=== PATIENT | female | born 1980 | race Caucasian/White ===

== ENCOUNTER 2016-12-02 19:02 | Emergency (ER) | payer OTHER ==
[~2016-12-02 19:02] MED LIST: ATENOLOL25 MG PO; EFFEXOR XR150 MG PO; EFFEXOR25 MG PO; GABAPENTIN PO; HYDROCODONE PO; KLONOPIN1 MG PO; OXYCODONE HCL E10 MG PO; PRILOSEC20 MG PO; RANITIDINE HCL150 MG PO; ZOFRAN PO
--- NOTE | 2016-12-02 21:18 | DIAGNOSTIC IMAGING REPORT ---
PROCEDURE: US ABDOMEN ULTRASOUND-LIMITED INDICATION: RUQ PAIN TECHNIQUE: Stanford scale and color Doppler sonographic images of the abdomen were obtained. COMPARISON: CT chest/abdomen/pelvis 01/18/2016. FINDINGS: Cholecystectomy. Normal CBD measures 3.8 mm. Liver measures 19.6 cm with increased echogenicity. Normal pancreas. Aorta and IVC are patent. Normal hepatopetal flow. Normal right kidney measures 11.6 cm. IMPRESSION: 1. Cholecystectomy 2. Echogenic liver suggestive of hepatic steatosis versus intrinsic liver disease.
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
--- NOTE | 2016-12-02 21:29 | ED CLINICAL REPORT ---
Clinical Report - Physicians/Mid Levels [facility] [address] [place] [address] 12/02/2016 19:02 Patient: CHUCK TAIRQ Time Seen: 19:11. Arrived- By private vehicle. Historian- patient. HISTORY OF PRESENT ILLNESS Chief Complaint: ABDOMINAL PAIN. At its maximum, severity described as 8 / 10. When seen in the E.D., severity described as 7 / 10. It is described as dull and bloating and it is described as located in the right upper quadrant and radiating to the upper back ("between my shoulder blades"). This started today at about 5 PM and is still present. It was abrupt in onset and has been constant. The patient has had nausea and loss of appetite. No vomiting. She has had loose stools (chronically). It has been similar to previous symptoms. Similar symptoms previously: Several times. Diagnosis: gall stones. ( GAMING). REVIEW OF SYSTEMS Last normal menstrual period was 2 weeks ago. No chills, fever, calf pain, abdominal pain or diarrhea. No nausea, vomiting or urinary problems. She has experienced night sweats. (for the past 2 weeks). She has had a cough. She has had mild difficulty breathing ("rattle on the L side"). The patient has also had dyspnea on exertion. She has had palpitations (chronically). It has been similar to previous symptoms. All systems otherwise negative, except as recorded above. PAST HISTORY PCP - [facility] - Igor. SOCIAL HISTORY Current every day light tobacco smoker (cigarette)- less than 1/2 a pack per day. Occasional alcohol use. History of occasional drug use: marijuana. Residence: [place] she lives alone and with a family member. FAMILY HISTORY father with high cholesterol. ADDITIONAL NOTES The nursing notes have been reviewed. PHYSICAL EXAM Vital Signs: 12/02/2016 19:10 BP: 140/84. HR: 102. RR: 16. O2 saturation: 98%. Temp: 97.7 F. Pain level now: 8/10. Have been reviewed. Appearance: Alert. Eyes: Pupils equal, round and reactive to light. ENT: Pharynx normal. Neck: Normal inspection. Neck supple. CVS: Normal heart rate and rhythm. Heart sounds normal. Respiratory: No respiratory distress. Breath sounds normal. Abdomen: Soft. Mild tenderness in the right upper quadrant. Bowel sounds normal. Mild hepatomegaly. No mass. Back: Normal inspection. Skin: Skin warm and dry. Normal skin color. No rash. Normal skin turgor. Extremities: Extremities exhibit normal ROM. No lower extremity edema. LABS, X-RAYS, AND EKG Abdominal Sonogram: (IMPRESSION: 1. Cholecystectomy 2. Echogenic liver suggestive of hepatic steatosis versus intrinsic liver disease.). Laboratory Tests: Urine: (ANSHUL: 12/02/2016 20:20) ( [facility] 12/02/2016 21:24) Final results Test Result Flag Units (Reference) URINE NEGATIVE CBC w Diff: (ANSHUL: 12/02/2016 19:25) ( [facility] 12/02/2016 19:43) Final results Test Result Flag Units (Reference) WHITE BLOOD COUNT 8.9 K/uL (4.5-11.5) RED BLOOD COUNT 4.71 M/uL (4.00-5.20) HEMOGLOBIN 13.9 gm/dL (12.0-16.0) HEMATOCRIT 41.1 % (36.0-46.0) MEAN CELL VOLUME 87 fL (80-100) MEAN CORPUSCULAR HGB 30 pg (26-34) MEAN CORPUSCULAR HGB CONC 34 g/dL (31-37) RED CELL DISTRIBUTION WIDTH 14.9 H % (11.6-14.8) PLATELET COUNT 370 K/uL (150-400) NEUTROPHIL % 70.0 % (50-75) LYMPH % 22.8 L % (25-40) MONO % 6.0 % (3-14) EOSINOPHIL % 0.7 % (0-4) BASOPHIL % 0.5 % (0-2) CMP: (ANSHUL: 12/02/2016 19:25) ( [facility] 12/02/2016 19:56) Final results Test Result Flag Units (Reference) GLUCOSE 86 mg/dL (70-110) BUN 9 mg/dL (7-18) CREATININE 0.7 mg/dL (0.6-1.3) Estimated GFR >60 mL/min Estimated GFR- >60 mL/min Note: Persistent reduction over 3 months in eGFR<60 mL/min/1.73 m2 defines CKD. Patients with eGFR values>=60 mL/min/1.73 m2 may also have CKD if evidence ofpersistent proteinuria. Additional information may be foundat www.kidney.org. SODIUM 141 mmol/L (136-145) POTASSIUM 3.4 L mmol/L (3.5-5.1) CHLORIDE 104 mmol/L (98-107) CARBON DIOXIDE 25 mmol/L (21-32) CALCIUM 8.8 mg/dL (8.5-10.1) TOTAL PROTEIN 7.4 g/dL (6.4-8.2) ALBUMIN 3.8 g/dL (3.3-5.0) BILIRUBIN, TOTAL 0.3 mg/dL (0.0-1.0) ALKALINE PHOSPHATASE 83 U/L (46-116) AST (SGOT) 20 U/L (15-37) ALT (SGPT) 28 U/L (12-78) LIPASE 129 U/L (73-393) AMYLASE 44 U/L (25-115) . PROGRESS AND PROCEDURES Course of Care: Patient is stable. Patient/family counseled. Old medical records reviewed. Disposition: Discharged. Condition: stable. CLINICAL IMPRESSION Acute right upper quadrant abdominal pain of unknown cause. INSTRUCTIONS No driving or operating machinery while taking medication. Sedative medication was given during your visit. Drink plenty of fluids. Warnings: Further evaluation is necessary. GENERAL WARNINGS: Return or contact your physician immediately if your condition worsens or changes unexpectedly, if not improving as expected, or if other problems arise. Your Current Medications: CONTINUE TAKING THE FOLLOWING MEDICATIONS: Advil Oral. Effexor XR Oral : 150 mg daily. Lansoprazole Oral : 40mg daily. Prescription Medications: Ultram 50 mg: take 1-2 orally every 6 hours as needed for pain. Dispense fifteen (15). No refills. Substitution is permissible. Follow-up: Follow up with your doctor tomorrow. Call for an appointment. Follow up with a slitter and rewinder machine operator- as recommended by your primary care physician. Understanding of the discharge instructions verbalized by patient. (Electronically signed by Yonis Bailey MD 12/03/2016 23:55)
--- NOTE | 2016-12-02 21:30 | ED ORDER SUMMARY ---
..... Patient: CHUCK TARIQ OrderSheet [facility] VisitID: [id number] [place] [address] 36y, F Registration Date/Time: 12/02/2016 ORDER SHEET Weight: 96.1 kg (stated) Allergies: None GENERAL ORDERS: CBC w Diff Urgent (19:12/02/2016 David PENA) (Ack 19:22 AMcQuoid ER Tech1) (19:30 KKnebel R.N.) CMP Urgent (19:12/02/2016 David PENA) (Ack 19:22 AMcQuoid ER Tech1) (19:30 KKnebel R.N.) UA-Culture if indicated Urgent (19:12/02/2016 David PENA) (Ack 19:22 AMcQuoid ER Tech1) (20:25 KKnebel R.N.) Amylase Urgent (19:12/02/2016 David PENA) (Ack 19:22 AMcQuoid ER Tech1) (19:30 KKnebel R.N.) Lipase Urgent (19:12/02/2016 David PENA) (Ack 19:22 AMcQuoid ER Tech1) (19:30 KKnebel R.N.) Urine Urgent (19:12/02/2016 David PENA) (Ack 19:22 AMcQuoid ER Tech1) (20:25 KKnebel R.N.) US Abdomen Limited (No) Urgent (20:18 12/02/2016 David PENA) (Ack 20:22 AMcQuoid ER Tech1) (21:02 RFay) MEDICATION ORDERS: IV FLUIDS: IV Saline Lock (19:12/02/2016 David PENA) (19:29 KKnebel R.N.) IV NS : initial bolus 500 mL (1000 mL/hr), then 125 mL/hr for 4h (NOW); Urgent (20:12/02/2016 David PENA) (20:35 KKnebel R.N.) Dilaudid IV 1 mg (HIGH ALERT MEDICATION, NOW) (20:12/02/2016 David PENA) (20:35 KKnebel R.N.) Zofran IV 4 mg (NOW) (20:16 12/02/2016 David PENA) (20:35 Philippe Hughes) ORDER SHEET NOTES: [Electronically signed by Vaishnavi Mittal R.N. (19:33 12/03/2016)] [Electronically signed by Yonis Bailey MD (23:55 12/03/2016)] [Electronically locked/signed by Vaishnavi Mittal R.N. (:33 12/03/2016)]
--- NOTE | 2016-12-02 21:30 | ED ORDER SUMMARY ---
..... Patient: CHUCK TARIQ OrderSheet [facility] VisitID: [id number] [address] [place] [address] 36y, F Registration Date/Time: 12/02/2016 ORDER SHEET Weight: 96.1 kg (stated) Allergies: None GENERAL ORDERS: CBC w Diff Urgent (19:12/02/2016 David PENA) (Ack 19:22 AMcQuoid ER Tech1) (19:30 KKnebel R.N.) CMP Urgent (19:12/02/2016 David PENA) (Ack 19:22 AMcQuoid ER Tech1) (19:30 KKnebel R.N.) UA-Culture if indicated Urgent (19:12/02/2016 David PENA) (Ack 19:22 AMcQuoid ER Tech1) (20:25 KKnebel R.N.) Amylase Urgent (19:12/02/2016 David PENA) (Ack 19:22 AMcQuoid ER Tech1) (19:30 KKnebel R.N.) Lipase Urgent (19:12/02/2016 David PENA) (Ack 19:22 AMcQuoid ER Tech1) (19:30 KKnebel R.N.) Urine Urgent (19:12/02/2016 David PENA) (Ack 19:22 AMcQuoid ER Tech1) (20:25 KKnebel R.N.) US Abdomen Limited (No) Urgent (20:18 12/02/2016 David PENA) (Ack 20:22 AMcQuoid ER Tech1) (21:02 RFay) MEDICATION ORDERS: IV FLUIDS: IV Saline Lock (19:12/02/2016 David PENA) (19:29 KKnebel R.N.) IV NS : initial bolus 500 mL (1000 mL/hr), then 125 mL/hr for 4h (NOW); Urgent (20:12/02/2016 David PENA) (20:35 KKnebel R.N.) Dilaudid IV 1 mg (HIGH ALERT MEDICATION, NOW) (20:12/02/2016 David PENA) (20:35 KKnebel R.N.) Zofran IV 4 mg (NOW) (20:16 12/02/2016 David PENA) (20:35 Philippe Hughes) ORDER SHEET NOTES: [Electronically signed by Vaishnavi Mittal R.N. (19:33 12/03/2016)] [Electronically signed by Yonis Bailey MD (23:55 12/03/2016)] [Electronically locked/signed by Vaishnavi Mittal R.N. (:33 12/03/2016)]
--- NOTE | 2016-12-03 23:55 | ED MED RECONCILIATION SUMMARY ---
Patient: CHUCK TARIQ Medication Reconciliation Report [facility] VisitID: [id number] [address] [place] [address] 36y, F Registration Date/Time: 12/02/2016 Weight: 96.1 kg Height/Length: 63 in. BMI: 37.5 ALLERGIES: None The patient's Home Medications are listed below: CONTINUE TAKING THE FOLLOWING MEDICATIONS: Advil Oral Effexor XR Oral 150 mg, daily Lansoprazole Oral 40mg, daily The source(s) of the original Home Medication information: Not obtained. The following Medications were given to the patient in the Emergency Department: IV NS IV Fluids bolus 500 mL over 30 minute(s), administered: 12/02/2016 8:33:00 PM Dilaudid [IVP] IVP 1 mg, administered: 12/02/2016 8:35:00 PM Zofran [IVP] IVP 4 mg, administered: 12/02/2016 8:30:00 PM The following Medications were prescribed to the patient: Ultram 50 mg: take 1-2 orally every 6 hours as needed for pain. Dispense fifteen (15). No refills. Substitution is permissible. -- Yonis Bailey MD
--- NOTE | 2016-12-03 23:55 | ED DISCHARGE INSTRUCTIONS ---
Patient: CHUCK TARIQ General Instructions [facility] VisitID: [id number] [place] [address] 36y, F Registration Date/Time: 12/02/2016 Acute right upper quadrant abdominal pain of unknown cause. INSTRUCTIONS No driving or operating machinery while taking medication. Sedative medication was given during your visit. Drink plenty of fluids. Warnings: Further evaluation is necessary. GENERAL WARNINGS: Return or contact your physician immediately if your condition worsens or changes unexpectedly, if not improving as expected, or if other problems arise. Your Current Medications: CONTINUE TAKING THE FOLLOWING MEDICATIONS: Advil Oral. Effexor XR Oral : 150 mg daily. Lansoprazole Oral : 40mg daily. Prescription Medications: Ultram 50 mg: take 1-2 orally every 6 hours as needed for pain. Dispense fifteen (15). No refills. Substitution is permissible. Follow-up: Follow up with your doctor tomorrow. Call for an appointment. Follow up with a yard jacker- as recommended by your primary care physician. Understanding of the discharge instructions verbalized by patient. ADDITIONAL INFORMATION Abdominal Pain, Unknown Cause (Female) The exact cause of your abdominal (stomach) pain is not certain. This does not mean that this is something to worry about, or the right tests were not done. Everyone likes to know the exact cause of the problem, but sometimes with abdominal pain, there is no clear-cut cause, and this could be a good thing. The good news is that your symptoms can be treated, and you will feel better. Your condition does not seem serious now; however, sometimes the signs of a serious problem may take more time to appear. For this reason,it is important for you to watch for any new symptoms, problems,or worsening of your condition. Over the next few days, the abdominal pain may come and go, or be continuous. Other common symptoms can include nausea and vomiting. Sometimes it can be difficult to tell if you feel nauseous, you may just feel bad and not associate that feeling with nausea. Constipation, diarrhea, and a fever may go along with the pain. The pain may continue even if treated correctly over the following days. Depending on how things go, sometimes the cause can become clear and may require further or different treatment. Additional evaluations, medications, or tests may be needed. Home care Your health care provider may prescribe medications for pain, symptoms, or an infection. Follow the health care provider's instructions for taking these medications. General care Rest until your next exam. No strenuous activities. Try to find positions that ease discomfort. A small pillow placed on the abdomen may help relieve pain. Something warm on your abdomen (such as a heating pad) may help, but be careful not to burn yourself. Diet Do not force yourself to eat, especially if having cramps, vomiting, or diarrhea. Water is important so you do not get dehydrated. Soup may also be good. Sports drinks may also help, especially if they are not too acidic. Make sure you don't drink sugary drinks as this can make things worse. Take liquids in small amounts. Do not guzzle them. Caffeine sometimes makes the pain and cramping worse. Avoid dairy products if you have vomiting or diarrhea. Don't eat large amounts at a time. Wait a few minutes between bites. Eat a diet low in fiber (called a low-residue diet). Foods allowed include refined breads, white rice, fruit and vegetable juices without pulp, tender meats. These foods will pass more easily through the intestine. Avoid whole-grain foods, whole fruits and vegetables, meats, seeds and nuts, fried or fatty foods, dairy, alcohol and spicy foods until your symptoms go away. Follow-up care Follow up with your health care provider as instructed, or if your pain does not begin to improve in the next 24 hours. When to seek medical care Seek prompt medical care if any of the following occur: Pain gets worse or moves to the right lower abdomen New or worsening vomiting or diarrhea Swelling of the abdomen Unable to pass stool for more than three days Fever of 100.4F (38C) or higher, or as directed by your healthcare provider. Blood in vomit or bowel movements (dark red or black color) Jaundice (yellow color of eyes and skin) Weakness, dizziness Chest, arm, back, neck or jaw pain Unexpected vaginal bleeding or missed period Call 911 Call emergency services if any of the following occur: Trouble breathing Confusion Fainting or loss of consciousness Rapid heart rate Seizure Tramadol Hydrochloride Oral tablet What is this medicine? TRAMADOL (TRA ma dole) is a pain reliever. It is used to treat moderate to severe pain in adults. How should I use this medicine? Take this medicine by mouth with a full glass of water. Follow the directions on the prescription label. If the medicine upsets your stomach, take it with food or milk. Do not take more medicine than you are told to take. Talk to your education associate regarding the use of this medicine in children. Special care may be needed. What side effects may I notice from receiving this medicine? Side effects that you should report to your doctor or health inpatient care manager rn as soon as possible: allergic reactions like skin rash, itching or hives, swelling of the face, lips, or tongue breathing difficulties, wheezing confusion itching light headedness or fainting spells redness, blistering, peeling or loosening of the skin, including inside the mouth seizures Side effects that usually do not require medical attention (report to your doctor or health inpatient care manager rn if they continue or are bothersome): constipation dizziness drowsiness headache nausea, vomiting What may interact with this medicine? Do not take this medicine with any of the following medications: MAOIs like Carbex, Eldepryl, Marplan, Nardil, and Parnate This medicine may also interact with the following medications: alcohol or medicines that contain alcohol antihistamines benzodiazepines bupropion carbamazepine or oxcarbazepine clozapine cyclobenzaprine digoxin furazolidone linezolid medicines for depression, anxiety, or psychotic disturbances medicines for migraine headache like almotriptan, eletriptan, frovatriptan, naratriptan, rizatriptan, sumatriptan, zolmitriptan medicines for pain like pentazocine, buprenorphine, butorphanol, meperidine, nalbuphine, and propoxyphene medicines for sleep muscle relaxants naltrexone phenobarbital phenothiazines like perphenazine, thioridazine, chlorpromazine, mesoridazine, fluphenazine, prochlorperazine, promazine, and trifluoperazine procarbazine warfarin What if I miss a dose? If you miss a dose, take it as soon as you can. If it is almost time for your next dose, take only that dose. Do not take double or extra doses. Where should I keep my medicine? Keep out of the reach of children. Store at room temperature between 15 and 30 degrees C (59 and 86 degrees F). Keep container tightly closed. Throw away any unused medicine after the expiration date. What should I tell my health care provider before I take this medicine? They need to know if you have any of these conditions: brain tumor depression drug abuse or addiction head injury if you frequently drink alcohol containing drinks kidney disease or trouble passing urine liver disease lung disease, asthma, or breathing problems seizures or epilepsy suicidal thoughts, plans, or attempt; a previous suicide attempt by you or a family member an unusual or allergic reaction to tramadol, codeine, other medicines, foods, dyes, or preservatives or trying to get breast-feeding What should I watch for while using this medicine? Tell your doctor or health inpatient care manager rn if your pain does not go away, if it gets worse, or if you have new or a different type of pain. You may develop tolerance to the medicine. Tolerance means that you will need a higher dose of the medicine for pain relief. Tolerance is normal and is expected if you take this medicine for a long time. Do not suddenly stop taking your medicine because you may develop a severe reaction. Your body becomes used to the medicine. This does NOT mean you are addicted. Addiction is a behavior related to getting and using a drug for a non-medical reason. If you have pain, you have a medical reason to take pain medicine. Your doctor will tell you how much medicine to take. If your doctor wants you to stop the medicine, the dose will be slowly lowered over time to avoid any side effects. You may get drowsy or dizzy. Do not drive, use machinery, or do anything that needs mental alertness until you know how this medicine affects you. Do not stand or sit up quickly, especially if you are an older patient. This reduces the risk of dizzy or fainting spells. Alcohol can increase or decrease the effects of this medicine. Avoid alcoholic drinks. You may have constipation. Try to have a bowel movement at least every 2 to 3 days. If you do not have a bowel movement for 3 days, call your doctor or health inpatient care manager rn. Your mouth may get dry. Chewing sugarless gum or sucking hard candy, and drinking plenty of water may help. Contact your doctor if the problem does not go away or is severe. You have been given the following additional information: Abdominal Pain, Unknown Cause, (Female) Tramadol Hydrochloride Oral tablet No driving or operating machinery while taking medication. Sedative medication was given during your visit. (Electronically signed by Yonis Bailey MD 12/03/2016 23:55)
--- NOTE | 2016-12-03 23:55 | ED MAR SUMMARY ---
..... Medication Administration Record [facility] [address] [place] [address] Patient: CHUCK TARIQ Visit ID: [id number] 36y, F Weight: 96.1 kg Height/Length: 63 in BMI: 37.5 ALLERGIES: None Given 20:30 12/02/2016 Vaishnavi Mittal R.N. Medication Administered: ZOFRAN [IVP] (ONDANSETRON HCL), Dose: 4 mg IVP over 2 minute(s), Site: #1 right hand. Medication Ordered: Zofran IV 4 mg (NOW). Start 20:33 12/02/2016 Vaishnavi Mittal R.N. Medication Administered: IV NS (SALINE), Dose: IV Fluids, Bolus: 500 mL over 30 minute(s), Dispensed: 1000 mL bag, Site: #1 right hand. Medication Ordered: IV NS : initial bolus 500 mL (1000 mL/hr), then 125 mL/hr for 4h (NOW); Urgent. Given 20:35 12/02/2016 Vaishnavi Mittal RCristalNCristal Medication Administered: DILAUDID [IVP] (HYDROMORPHONE HCL PF), Dose: 1 mg IVP over 2 minute(s), Site: #1 right hand. Medication Ordered: Dilaudid IV 1 mg (HIGH ALERT MEDICATION, NOW).
--- NOTE | 2016-12-03 23:55 | ED MED RECONCILIATION SUMMARY ---
Patient: CHUCK TARIQ Medication Reconciliation Report [facility] VisitID: [id number] [address] [place] [address] 36y, F Registration Date/Time: 12/02/2016 Weight: 96.1 kg Height/Length: 63 in. BMI: 37.5 ALLERGIES: None The patient's Home Medications are listed below: CONTINUE TAKING THE FOLLOWING MEDICATIONS: Advil Oral Effexor XR Oral 150 mg, daily Lansoprazole Oral 40mg, daily The source(s) of the original Home Medication information: Not obtained. The following Medications were given to the patient in the Emergency Department: IV NS IV Fluids bolus 500 mL over 30 minute(s), administered: 12/02/2016 8:33:00 PM Dilaudid [IVP] IVP 1 mg, administered: 12/02/2016 8:35:00 PM Zofran [IVP] IVP 4 mg, administered: 12/02/2016 8:30:00 PM The following Medications were prescribed to the patient: Ultram 50 mg: take 1-2 orally every 6 hours as needed for pain. Dispense fifteen (15). No refills. Substitution is permissible. -- Yonis Bailey MD
--- NOTE | 2016-12-03 23:55 | ED MAR SUMMARY ---
..... Medication Administration Record [facility] [address] [place] [address] Patient: CHUCK TARIQ Visit ID: [id number] 36y, F Weight: 96.1 kg Height/Length: 63 in BMI: 37.5 ALLERGIES: None Given 20:30 12/02/2016 Vaishnavi Mittal R.N. Medication Administered: ZOFRAN [IVP] (ONDANSETRON HCL), Dose: 4 mg IVP over 2 minute(s), Site: #1 right hand. Medication Ordered: Zofran IV 4 mg (NOW). Start 20:33 12/02/2016 Vaishnavi Mittal R.N. Medication Administered: IV NS (SALINE), Dose: IV Fluids, Bolus: 500 mL over 30 minute(s), Dispensed: 1000 mL bag, Site: #1 right hand. Medication Ordered: IV NS : initial bolus 500 mL (1000 mL/hr), then 125 mL/hr for 4h (NOW); Urgent. Given 20:35 12/02/2016 Vaishnavi Mittal RCristalNCristal Medication Administered: DILAUDID [IVP] (HYDROMORPHONE HCL PF), Dose: 1 mg IVP over 2 minute(s), Site: #1 right hand. Medication Ordered: Dilaudid IV 1 mg (HIGH ALERT MEDICATION, NOW).
== END 2016-12-02 21:33 | disposition home or self-care (01) ==
LOC: ED SRH 19:02
DX: R10.11 Right upper quadrant pain (principal); E11.9 Type 2 diabetes mellitus without complications; I10 Essential (primary) hypertension; J45.909 Unspecified asthma, uncomplicated; Z79.899 Other long term (current) drug therapy; F17.210 Nicotine dependence, cigarettes, uncomplicated
CPT/HCPCS: 90004; 90100; 92235; 92530; 93070; 95059